=== PATIENT | female | born 1955 | race African-American/Black ===

== ENCOUNTER 2023-09-04 14:48 | Emergency (ER) | payer MEDICAID ==
[~2023-09-04] VITALS: Ht 165.1 cm; Wt 80.0 kg
[2023-09-04 14:58] VITALS: BP 119/82; PULSE 95; RESP 18; TEMP 98.5; O2SAT 98
[2023-09-04] MEDS ORDERED: ACETAMINOPHEN 325MG TABLET PO STA (15:24)
[2023-09-04 16:06] LABS: BASOPHILS % 0.3 % (0.0-2.0); EOSINOPHILS % 2.1 % (0.0-5.0); HEMATOCRIT. 35.4 % (36.0-48.0); HEMOGLOBIN. 11.8 g/dL (12.0-16.0); LYMPHOCYTES % 56.1 % (20.0-50.0); MEAN CORPUSCULAR HEMOGLOBIN 29.9 pg (28.0-32.0); MEAN CORPUSCULAR HGB CONC 33.4 g/dL (31.0-37.0); MEAN CORPUSCULAR VOLUME 89.5 fL (81.0-99.0); MEAN PLATELET VOLUME 8.5 fl (7.4-10.4); MONOCYTES % 9.8 % (2.0-8.0); NEUTROPHILS % 31.7 % (40.0-76.0); PLATELET 265 x1000/uL (130-400); RED BLOOD CELL COUNT 3.95 mill/uL (4.2-5.4); RED CELL DISTRIBUTION WIDTH 13.8 % (11.6-14.6); WHITE BLOOD COUNT 5.6 x1000/uL (4.5-11.0)
[2023-09-04 16:12] LABS: CARBON DIOXIDE 29 mEq/L (21-32); CHLORIDE 107 mEq/L (98-107); POTASSIUM 4.1 mEq/L (3.5-5.1); SODIUM 140 mEq/L (136-145)
[2023-09-04 16:13] LABS: CALCIUM 9.7 mg/dL (8.7-10.4)
[2023-09-04 16:18] LABS: CREATININE 0.8 mg/dL (0.6-1.0); D-DIMER 0.63 mg/L FEU (<0.50); GLUCOSE 106 mg/dL (70-105); INR 0.9; UREA NITROGEN BLOOD 16 mg/dL (9-23)
[2023-09-04 16:19] LABS: TROPONIN I HIGH SENSITIVITY 9 ng/L (3.0-34)
[2023-09-04 16:20] LABS: ALANINE AMINOTRANSFERASE 12 IU/L (10-49); ALBUMIN 4.3 g/dL (3.2-4.8); ASPARTATE AMINOTRANSFERASE 16 IU/L (<34); BILIRUBIN TOTAL 0.9 mg/dL (0.1-1.0); PROTEIN TOTAL 7.5 g/dL (6.0-8.3)
[2023-09-04 20:33] LABS: TROPONIN I HIGH SENSITIVITY 7 ng/L (3.0-34)
[2023-09-04] MEDS ORDERED: METHOCARBAMOL 500MG TABLET PO ONE (22:45)
[2023-09-04] MEDS ORDERED: KETOROLAC 30MG/ML VIAL IV ONE (22:45)
[2023-09-05] MEDS: ACETAMINOPHEN 325MG TABLET PO NR (03:32)
[2023-09-05] MEDS: KETOROLAC 30MG/ML VIAL IV NR (04:01)
[2023-09-05] MEDS: METHOCARBAMOL 500MG TABLET PO NR (04:02)
[2023-09-05] MEDS ORDERED: IOHEXOL-350 100 ML BOTTLE ONE (04:55)
== END 2023-09-05 03:37 | disposition home or self-care (01) ==
LOC: ER 15:15
DX: R07.89 Other chest pain (principal); M25.512 Pain in left shoulder; E11.9 Type 2 diabetes mellitus without complications
CPT/HCPCS: 99285; 71275; 71045; 80053; 83690; 85025; 85379; 85610; 84484; 36415; 93005; Q9967; J1885